=== PATIENT | female | born 1965 | race Caucasian/White ===

== ENCOUNTER 2018-09-16 18:32 | Emergency (ER) | payer OTHER ==
[~2018-09-16] VITALS: Ht 167.6 cm; Wt 90.9 kg
[2018-09-16 18:51] VITALS: BP 138/70
[2018-09-16] MEDS ORDERED: acetaminophen 325mg tablet PO ONE (19:10)
[2018-09-16] MEDS ORDERED: ondansetron 4mg rapidly disintigrating tab PO ONE (20:25)
[2018-09-16] MEDS ORDERED: ibuprofen tablet 400 MG TABLET PO ONE (20:25)
[2018-09-16] MEDS ORDERED: IBUP-1984 PO (20:35)
[2018-09-16] MEDS ORDERED: ONDA8TAB6 PO (20:35)
--- NOTE | 2018-09-17 10:37 | NUR ---
PT CALLED AT DR RAND REQUEST. INFORMED THAT THE RADIOLOGIST RE-READ HER XRAY FROM HER LAST VISIT AND SHE HAS A 4TH METATARSAL FX AND THAT SHE NEEDS TO COME BACK TO THE ER TO HAVE A SHORT LEG SPLINT APPLIED AND REFERRAL TO [facility] Addendum: 09/17/18 at 1041 by JINA PT WILL CALL HER AND COME BACK IN [facility].
== END 2018-09-16 21:08 | disposition home or self-care (01) ==
LOC: ER 18:33
DX: S90.31XA Contusion of right foot, initial encounter (principal); M25.474 Effusion, right foot; Z88.0 Allergy status to penicillin; Z88.5 Allergy status to narcotic agent; Z88.1 Allergy status to other antibiotic agents; Z79.899 Other long term (current) drug therapy; W01.0XXA Fall on same level from slipping, tripping and stumbling without subsequent striking against object, initial encounter; Y93.89 Activity, other specified; Y92.89 Other specified places as the place of occurrence of the external cause; Y99.8 Other external cause status
CPT/HCPCS: 73630; 99284; J2405

== ENCOUNTER 2018-09-17 12:38 | Emergency (ER) | payer OTHER ==
[~2018-09-17] VITALS: Ht 170.2 cm; Wt 90.9 kg
[~2018-09-17 12:38] MED LIST: IBUP-1984 PO; ONDA8TAB6 PO
[2018-09-17 12:59] VITALS: BP 132/48
== END 2018-09-17 14:33 | disposition home or self-care (01) ==
LOC: ER 12:39
DX: S92.342D Displaced fracture of fourth metatarsal bone, left foot, subsequent encounter for fracture with routine healing (principal); Z88.0 Allergy status to penicillin; Z88.5 Allergy status to narcotic agent; Z88.1 Allergy status to other antibiotic agents; W18.49XD Other slipping, tripping and stumbling without falling, subsequent encounter
CPT/HCPCS: 99284

== ENCOUNTER 2022-04-26 16:56 | Emergency (ER) | payer MEDICAID ==
[~2022-04-26] VITALS: Ht 167.6 cm; Wt 90.0 kg
[~2022-04-26 16:56] MED LIST changes: -IBUP-1984 PO
[2022-04-26 17:12] VITALS: BP 131/76
[2022-04-26] MEDS ORDERED: ibuprofen tablet 400 MG TABLET PO ONE (17:45)
== END 2022-04-26 18:24 | disposition home or self-care (01) ==
LOC: ER 16:56
DX: N10 Acute pyelonephritis (principal); N39.0 Urinary tract infection, site not specified; Z88.0 Allergy status to penicillin; Z88.5 Allergy status to narcotic agent; Z79.899 Other long term (current) drug therapy; Z88.1 Allergy status to other antibiotic agents
CPT/HCPCS: 99282; 99283

== ENCOUNTER 2024-07-17 07:17 | Emergency (ER) | payer MEDICAID ==
[~2024-07-17] VITALS: Ht 170.2 cm; Wt 98.8 kg
--- NOTE | 2024-07-17 09:03 | Physician Documentation ---
History of Present Illness ~ Chief Complaint: Cough Stated Complaint: MULTIPLE MEDICAL COMPLAINTS Time Seen by MD: 08:51 HPI 59-year-old nonsmoker with no history of asthma presents with complaint of bronchitis for the last four days. She states she has a history of pneumonias well. Denies diabetes. \states she has increased work of breathing and is wheezing Day of Onset: July 17, 2024 Medication Reconciliation Allergies: Coded Allergies: Penicillins (Verified Allergy, Unknown, 09/16/18) codeine (Verified Allergy, Unknown, 09/16/18) levofloxacin (Verified Allergy, Unknown, 09/16/18) Scheduled Ondansetron Hcl (Zofran), 1 TAB PO Q8H Prednisone (Prednisone), 1 TAB PO BID Scheduled PRN albuterol inhaler (Pro-Air Inhaler), 2 PUFFS INH Q4HPRN PRN for wheezing Past Medical History Past Medical History: No Pertinent History Past Surgical History: noncontributory Smoking Status: Never smoker Alcohol Use: None Drug Use: none Lives In: Home Review of Systems All Other Systems at this time: Reviewed and Negative ROS As stated above in the HPI, otherwise all systems are reviewed and negative. Physical Exam Vital Signs: Temperature: 98.0, Source: Oral, Heart Rate: 81, Respiratory Rate: 20, BP: 104/70, Pulse Oximetry: 100, Weight: 98.850 Oxygen Flow Rate: 0 Physical Exam General: Alert, Respiratory: Coarse lung sounds with mild wheezes mild increased work of breathing Chest: No accessory muscle use. Cardiovascular: Regular rate and rhythm, no murmurs. Neurologic: Oriented x4. Psychiatric: Normal mood and affect. Skin: Normal color, warm and dry. No edema, no ecchymosis. Progress Results/Orders Results/Orders Orders - MADI FARIAS TELEPHONE DIRECTORY DELIVERER Chest,Single View (07/17/24 08:58) Svn Treatment (07/17/24 ) Completed Orders - MADI FARIAS TELEPHONE DIRECTORY DELIVERER Chest,Single View (07/17/24 08:58) Ipratropium/Albuterol Nebule (Ipratrop/A (07/17/24 09:40) Ipratropium/Albuterol Nebule (Ipratrop/A (07/17/24 09:40) Vital Signs 07/17/24 07/17/24 07/17/24 07/17/24 07:21 07:51 07:55 08:05 Temp 98.0 Pulse 88 89 88 Resp 18 24 24 22 B/P (MAP) 125/90 111/74 (86) 106/84 (91) Pulse Ox 100 99 99 O2 Delivery Room Air O2 Flow Rate 0 0 0 07/17/24 07/17/24 07/17/24 07/17/24 08:58 09:41 09:42 09:42 Pulse 81 89 79 86 Resp 20 20 20 20 B/P (MAP) 104/70 (81) 113/75 (88) Pulse Ox 100 99 O2 Delivery Room Air* Room Air* O2 Flow Rate 0 0 0 0 FiO2 21 21 07/17/24 07/17/24 10:00 10:01 Temp 98.0 Pulse 88 Resp 18 B/P (MAP) 106/54 (71) Pulse Ox 98 O2 Flow Rate 0 Medical Decision Making Findings VIRAL BRONCHITIS IN HIS CASE. GOING TO PRESCRIBE THE PATIENT SOME ALBUTEROL INHALER ALONG WITH TAPERING DOSE OF PREDNISONE. PER MY INTERPRETATION OF HER X- RAY DID NOT SEE ANY SIGNS OF PNEUMONIA HOWEVER Differential Dx:Considerations: Include: Allergic rhinitis, Influenza, Otitis media, Peritonsillar abscess, Pharyngitis-Diphtheria, Pharyngitis-Streptoccal, Pharyngitis-Viral, Pneumonia, Pnuemonitis, Sinusitis, URI, Other Departure Disposition: HOME / SELF CARE / HOMELESS Impression: Primary Impression: Acute bronchitis Condition: Stable Discharge Instructions: Cough, Adult Referrals: NO PRIMARY CARE PROVIDER (PCP) Prescriptions Prednisone (Prednisone) 10 Mg Tablet 1 TAB PO BID for 5 Days, #10 TAB Prov: MADI FARIAS NP 07/17/24 albuterol inhaler (Pro-Air Inhaler) 8.5 Gm Inhaler 2 PUFFS INH Q4HPRN PRN for wheezing for 30 Days, #18 GM Prov: MADI FARIAS NP 07/17/24 Signature Scribe Signature: GF Attestation: The note accurately reflects work and decisions made by me.Madi Santoyo NP 07/17/24 15:25 MADI FARIAS NP July 17, 2024 09:03
--- NOTE | 2024-07-17 09:26 | RADIOLOGY REPORT ---
DI CHEST,SINGLE VIEW, HISTORY: cough COMPARISON: None None TECHNICAL DATA: 1 view of the chest was obtained. FINDINGS: Lines and tubes: None Cardiomediastinal silhouette: normal Pulmonary vasculature: normal Lung expansion: normal Lung airspace: normal Lung interstitium: normal Pleura: normal Pneumothorax: no Bones: Unremarkable Other: no IMPRESSION: No acute intrathoracic abnormality.
[2024-07-17] MEDS ORDERED: ipratropium/albuterol 3ml nebule NEB PRN (09:40)
[2024-07-17] MEDS ORDERED: ipratropium/albuterol 3ml nebule ONE (09:40)
[2024-07-17 09:42] VITALS: PULSE 79; PULSE 86; RESP 20
[2024-07-17] MEDS ORDERED: PRED10TA23 PO (09:42)
[2024-07-17] MEDS ORDERED: ALBU8HFA INH (09:42)
[2024-07-17 10:00] VITALS: BP 106/54; PULSE 88; RESP 18; O2SAT 98
[2024-07-17 10:01] VITALS: TEMP 98
== END 2024-07-17 10:02 | disposition home or self-care (01) ==
LOC: ER 07:18
DX: J20.9 Acute bronchitis, unspecified (principal); Z88.0 Allergy status to penicillin; Z88.1 Allergy status to other antibiotic agents; Z88.5 Allergy status to narcotic agent; Z79.899 Other long term (current) drug therapy
CPT/HCPCS: 71045; 94760; 99285